=== PATIENT | female | born 1965 | race Two or more races ===

== ENCOUNTER → 2017-09-29 | Outpatient (CLI) | payer OTHER, MEDICAID | END | disposition home or self-care (01) | LOC: HKI 14:06 | DX: M17.0 Bilateral primary osteoarthritis of knee (principal) | CPT/HCPCS: 73564; 73564-50 ==

== ENCOUNTER → 2017-10-27 | Outpatient (CLI) | payer OTHER | END | disposition home or self-care (01) | LOC: HKI 14:19 | DX: S83.242A Other tear of medial meniscus, current injury, left knee, initial encounter (principal); X58.XXXA Exposure to other specified factors, initial encounter | CPT/HCPCS: Z7500 ==

== ENCOUNTER 2018-02-17 08:02 | Day surgery (SDC) | payer OTHER ==
[2018-02-17] MEDS: LACTATED RINGER'S 1,000 ML IV* (08:40)
[2018-02-17] MEDS ORDERED: ONDANSETRON 4 MG INJ IV ×2 (09:00→10:30)
[2018-02-17] MEDS ORDERED: DEXAMETHASONE 4 MG/ML 1 ML INJ IV (09:00)
[2018-02-17] MEDS ORDERED: LANSOPRAZOLE 30 MG CAP PO (09:00)
[2018-02-17] MEDS ORDERED: CELECOXIB 200 MG CAP PO (09:00)
[2018-02-17] MEDS ORDERED: CEFAZOLIN 2 GM/50 ML (PMX) 50 ML IVPB (09:00)
[2018-02-17] MEDS ORDERED: TRIAMCINOLONE ACET 40 MG/ML INJ (12:11)
[2018-02-17] MEDS ORDERED: LIDOCAINE 1% (MPF) 30 ML INJ (12:11)
[2018-02-17] MEDS ORDERED: FENTAnyl 50 MCG/ML VIAL (12:42)
[2018-02-17] MEDS ORDERED: ROCURONIUM 50 MG INJ (13:05)
[2018-02-17] MEDS ORDERED: SUGAMMADEX SODIUM 200 MG/2 ML VIAL IV (13:05)
[2018-02-17] MEDS ORDERED: PROPOFOL 20 ML (13:05)
[2018-02-17] MEDS ORDERED: LIDOCAINE 100 MG SYRINGE (13:05)
[2018-02-17] MEDS ORDERED: SUCCINYLCHOLINE CHLORIDE 100 MG/5 ML SYG IV (13:05)
[2018-02-17] MEDS ORDERED: CEFAZOLIN 1 GM INJ (13:05)
[2018-02-17] MEDS ORDERED: PROVENTIL HFA 6.7GM INHALER (13:09)
[2018-02-17] MEDS: LIDOCAINE 1% (MPF) 30 ML INJ INJ (13:09)
[2018-02-17] MEDS: TRIAMCINOLONE ACET 40 MG/ML INJ INJ (13:09)
[2018-02-17] MEDS ORDERED: FENTAnyl 50 MCG/ML VIAL IV (13:30)
[2018-02-17] MEDS ORDERED: DIPHENHYDRAMINE 50 MG INJ IV (13:30)
[2018-02-17] MEDS ORDERED: ALBUTEROL 0.083% (NEB) 2.5 MG/3 ML AMP HHN (13:30)
[2018-02-17] MEDS ORDERED: MEPERIDINE 25 MG INJ IV (13:30)
[2018-02-17] MEDS ORDERED: HYDROmorphONE 1 MG/5 ML IV SYRINGE IV ×2 (13:30)
[2018-02-17] MEDS: HYDROmorphONE 1 MG/5 ML IV SYRINGE IV (13:41)
[2018-02-17] MEDS: FENTAnyl 50 MCG/ML VIAL IV (13:52)
[2018-02-17] MEDS: ACETAMINOPHEN 1000MG/100ML IV 100 ML IVPB (13:52)
[2018-02-17] MEDS: oxyCODONE (CR) 10 MG TAB [oxyCONTIN] PO (14:17)
[2018-02-17] MEDS: HYDROCODONE/APAP (5/325) TAB PO (14:54)
== END 2018-02-17 15:03 | disposition home or self-care (01) ==
LOC: SDS 08:02
DX: M23.222 Derangement of posterior horn of medial meniscus due to old tear or injury, left knee (principal); M94.262 Chondromalacia, left knee
CPT/HCPCS: 29881; 84703